=== PATIENT | male | born 1965 | race Caucasian/White ===

== ENCOUNTER → 2019-06-14 | Outpatient (CLI) | payer BC ==
[2019-06-14 17:37] LABS: HCT 43.3 % (39.0-53.0); HGB 14.2 gm/dL (13.0-17.5); MCH 28.6 pg (25.0-35.0); MCHC 32.9 g/dL (31.0-37.0); Mean Platelet Volume 7.1; Platelet Count 268 k/uL (150-450); RBC 4.97 m/uL (4.30-5.90); RDW 14.8 % (11.5-15.5); WBC 7.7 k/uL (3.8-10.6)
[2019-06-14 17:55] LABS: African American GFR (CKD) >90 (>60 ml/min/1.73 sqM); Anion Gap 8 mmol/L; Blood Urea Nitrogen 20 mg/dL (9-20); Carbon Dioxide 27 mmol/L (22-30); Chloride 105 mmol/L (98-107); Potassium 4.3 mmol/L (3.5-5.1); Sodium 140 mmol/L (137-145)
== END | disposition home or self-care (01) ==
LOC: LABPAT 16:59
PROVIDERS: ATTEND Internal Medicine Interventional Cardiology
DX: Z01.812 Encounter for preprocedural laboratory examination (principal); Q21.1 Atrial septal defect
CPT/HCPCS: 80051; 82565; 84520; 85027

== ENCOUNTER 2019-06-19 06:53 | Day surgery (SDC) | payer BC ==
[2019-06-19] MEDS: SODIUM CHLORIDE 0.9% 1,000 ML IV SCH (07:48)
[2019-06-19] MEDS ORDERED: ASPIRIN 325 MG TAB ONE (07:50)
[2019-06-19] MEDS ORDERED: ASPIRIN 325 MG TAB PO STA (07:53)
[2019-06-19] MEDS ORDERED: MIDAZOLAM (PF) 2 MG/2 ML VIAL IV ONE ×2 (10:00→10:09)
[2019-06-19] MEDS ORDERED: LIDOCAINE 1% INJ 10MG/ML (20 ML MDV) SQ ONE (10:05)
[2019-06-19] MEDS ORDERED: HYDROmorphone 1 MG/ML 1 ML SYRINGE IVP ONE (10:09)
[2019-06-19] MEDS ORDERED: HEPARIN SODIUM 1,000 UN/ML (10ML VL) IV ONE (10:09)
[2019-06-19] MEDS ORDERED: CLOPIDOGREL 75 MG TAB PO ONE (10:46)
[2019-06-19] MEDS ORDERED: SODIUM CHLORIDE 0.9% 1,000 ML IV SCH (11:00)
--- NOTE | 2019-06-19 11:26 | AN ---
ANGIOGRAPHY REPORT DATE OF SERVICE: 06/19/2019 PERFORMING PHYSICIAN: Lee Child MD, [employer]isher. PROCEDURE PERFORMED: 1. Intracardiac echocardiogram imaging. 2. Successful percutaneous patent foramen ovale closure using 25 mm PFO septal occluder with an excellent results and without any residual shunt. 3. Right atrial angiogram. INDICATION: This is a 54-year-old gentleman who recently diagnosed with an episode of CVA and underwent a transthoracic and transesophageal echocardiogram and that revealed PFO. He was brought today to undergo a PFO closure. APPROACH: Right common femoral vein. COMPLICATION: None. LEVEL OF SEDATION: Moderate with sedation length of 42 minutes. PROCEDURE DESCRIPTION: After obtaining an informed consent, the patient was brought to the cardiac cath lab manager. The right common femoral vein was cannulated x2, using ultrasound guidance, using micropuncture technique, and I placed two 8-Nepali sheaths. At that point, anticoagulation was initiated using heparin and the patient was given weight-based heparin and 10,000 units. Subsequently, I did advance the intracardiac echocardiogram probe through the venous sheath in the right groin under fluoroscopy guidance to the right atrium where I did intracardiac echocardiogram images. I did identify the patent foramen ovale as well as the septum. Subsequently, I did cross the PFO using 0.035 J-wire with the backup support of multipurpose catheter. The catheter was advanced all the way to the left upper pulmonary vein. After that, I did exchange my 0.035 J-wire into a Carol wire using the multipurpose catheter. Subsequently and after interrogating the patent hernandez ovale under intracardiac echocardiogram images, I did decide to go with 25 mm PFO septal occluder. The device was prepped under saline. I made sure there was no bubble left. The device was loaded in the extractor loader and unloader after that. Subsequently, I did exchange my short sheath into the long shuttle sheath using fluoro guidance. The sheath was advanced all the way to the left atrium, across the interatrial septum, over there Carol wire. After that, I pulled the dilator and the wire out. Subsequently, I loaded the PFO septal occluder in the sheath all the way. I did deploy the left atrial occluder, then the right atrial occluder. After that, I did interrogate the device again with [place] maneuvers and pulling and pushing on the device to make sure the device was stable enough. Subsequently, the device was released. I did right atrial angiogram. Subsequently, I did exchange my long sheath into short sheath. The procedure was completed without any complication. POSTPROCEDURE MANAGEMENT: 1. Dual anti-platelet therapy. 2. Risk factors modifications. 3. An echocardiogram. 4. Follow up with the patient. ART / WILFRED: [id number] /
[2019-06-19] MEDS ORDERED: ACETAMINOPHEN TAB 500 MG TAB PO ONE (12:27)
[2019-06-19] MEDS ORDERED: HYDROmorphone 1 MG/ML 1 ML SYRINGE IVP PRN (12:31)
[2019-06-19 15:11] VITALS: BMI 32.1
[2019-06-20] MEDS: SODIUM CHLORIDE 0.9% 1,000 ML IV SCH (07:24)
--- NOTE | 2019-06-20 08:35 | XR ---
EXAMINATION TYPE: XR chest 2V DATE OF EXAM: 06/20/2019 COMPARISON: NONE HISTORY: Atrial septal defect. Perforated foramen ovale. TECHNIQUE: Frontal and lateral views of the chest are obtained. FINDINGS: New radiopaque density overlying the right atrium and its medial aspect is presumed to rep resent exposure to arise from the known atrial septal defect. Multiple leads overlying the chest. No pneumothorax is seen. No focal consolidation or pleural effusion. Slight left hemidiaphragm elevation is chronic. Cardiomediastinal silhouette is stable and upper limits of normal in size. Minimal degen erative changes of the spine. IMPRESSION: New radiopaque density presumed to represent an atrial septal defect closure device give n the history.
[2019-06-20 08:56] VITALS: BP 122/79; PULSE 61; RESP 18; TEMP 98.4
[2019-06-20] MEDS ORDERED: CLOPIDOGREL 75 MG TAB PO SCH (09:00)
[2019-06-20] MEDS ORDERED: ASPIRIN 325 MG TAB PO SCH (09:00)
[2019-06-20 09:14] LABS: Basophils # (A) 0.1 k/uL (0-0.2); Basophils % (A) 1 %; Eosinophils # (A) 0.4 k/uL (0-0.7); Eosinophils % (A) 6 %; HCT 41.2 % (39.0-53.0); HGB 13.7 gm/dL (13.0-17.5); Lymphocytes # (A) 1.4 k/uL (1.0-4.8); Lymphocytes % (A) 24 %; MCH 29.1 pg (25.0-35.0); MCHC 33.2 g/dL (31.0-37.0); MCV 87.6 fL (80.0-100.0); Mean Platelet Volume 6.9; Monocytes # (A) 0.4 k/uL (0-1.0); Monocytes % (A) 6 %; Neutrophils # (A) 3.4 k/uL (1.3-7.7); Neutrophils % (A) 60 %; Platelet Count 204 k/uL (150-450); RDW 14.9 % (11.5-15.5); WBC 5.6 k/uL (3.8-10.6)
[2019-06-20 09:30] LABS: African American GFR (CKD) >90 (>60 ml/min/1.73 sqM); Anion Gap 9 mmol/L; Blood Urea Nitrogen 15 mg/dL (9-20); Calcium 9.8 mg/dL (8.4-10.2); Carbon Dioxide 28 mmol/L (22-30); Chloride 105 mmol/L (98-107); Glucose 101 mg/dL (74-99); Potassium 4.2 mmol/L (3.5-5.1); Sodium 142 mmol/L (137-145)
--- NOTE | 2019-06-20 11:10 | DS ---
DISCHARGE SUMMARY ADMISSION DATE: 06/19/2019. DISCHARGE DATE: 06/20/2019 BRIEF HISTORY: This is a 54-year-old gentleman who was admitted to the hospital yesterday and underwent successful percutaneous closure of patent foramen ovale using 25 mm PFO septal occluder with an excellent results and without any residual shunt from the right groin approach. On followup with the patient today, he is asymptomatic. The right groin is soft and nontender and without any bruises. The patient is going to be discharged home on dual anti-platelet therapy and I will follow up with the patient in a week in the office. MMODL / IJN: [id number] /
[2019-06-21] MEDS ORDERED: CLOPIDOGREL 75 MG TAB PO SCH (09:00)
--- NOTE | 2019-06-25 16:41 | ECHOF ---
Referral Reason:Post ASD/PFO Insertion MEASUREMENTS -------- HEIGHT: 180.3 cm WEIGHT: 106.6 kg BP: 123/72 RVIDd: 4.0 cm (< 3.3) IVSd: 1.4 cm (0.6 - 1.1) LVIDd: 4.5 cm (3.9 - 5.3) LVPWd: 1.3 cm (0.6 - 1.1) IVSs: 2.0 cm LVIDs: 2.7 cm LVPWs: 1.6 cm LAESV Index (A-L): 35.48 ml/m Ao Diam: 3.7 cm (2.0 - 3.7) AV Cusp: 2.3 cm (1.5 - 2.6) LA Diam: 5.2 cm (2.7 - 3.8) EPSS: 0.7 cm MV E Ramón: 0.93 m/s MV DecT: 185 ms MV A Ramón: 0.70 m/s MV E/A Ratio: 1.34 AR PHT: 630 ms RAP: 5.00 mmHg RVSP: 18.70 mmHg MV EF SLOPE: 87.80 mm/s (70 - 150) MV EXCURSION: 1.84 cm (> 18.000) FINDINGS -------- Resting bradycardia (HR<60bpm). The left ventricular size is normal. There is mild concentric left ventricular hypertrophy. There is normal global left ventricular contractility. Overall left ventricular systolic function is nor mal with, an EF between 55 - 60 %. The diastolic filling pattern is normal for the age of the patie nt. The right ventricle is moderately enlarged. Left atrium is moderately dilated by volume. The right atrium is mildly enlarged. There is an interatrial closure device in place without evidence of shunt. The aortic valve is trileaflet and appears structurally normal. Trace to mild aortic regurgitation. There is no evidence of aortic stenosis. The mitral valve is normal. Mild mitral regurgitation is present. Trace tricuspid regurgitation present. There is no evidence of pulmonary hypertension. The right ventricular systolic pressure, as measured by Doppler, is 18.70mmHg. Trace/mild (physiologic) pulmonic regurgitation. The aortic root size is normal. The inferior vena cava was not well visualized. There is no pericardial effusion. CONCLUSIONS -------- 1. Resting bradycardia (HR<60bpm). 2. The left ventricular size is normal. 3. There is mild concentric left ventricular hypertrophy. 4. There is normal global left ventricular contractility. 5. Overall left ventricular systolic function is normal with, an EF between 55 - 60 %. 6. The diastolic filling pattern is normal for the age of the patient. 7. The right ventricle is moderately enlarged. 8. Left atrium is moderately dilated by volume. 9. The right atrium is mildly enlarged. 10. There is an interatrial closure device in place without evidence of shunt. 11. The aortic valve is trileaflet and appears structurally normal. 12. Trace to mild aortic regurgitation. 13. There is no evidence of aortic stenosis. 14. The mitral valve is normal. 15. Mild mitral regurgitation is present. 16. Trace tricuspid regurgitation present. 17. There is no evidence of pulmonary hypertension. 18. The right ventricular systolic pressure, as measured by Doppler, is 18.70mmHg. 19. Trace/mild (physiologic) pulmonic regurgitation. 20. The aortic root size is normal. 21. The inferior vena cava was not well visualized. 22. There is no pericardial effusion. JUMPBASTING COLLAR BASTER: Tara Louie RDCS
== END 2019-06-20 11:55 | disposition home or self-care (01) ==
LOC: CATHCVL 06:53 → 3SCARD 10:43 → CATHCVL 06-20 11:55
PROVIDERS: ATTEND Internal Medicine Interventional Cardiology
DX: Q21.1 Atrial septal defect (principal); I63.9 Cerebral infarction, unspecified; Z79.82 Long term (current) use of aspirin
CPT/HCPCS: 93581; 93306; 86900; 86901; 80048; 85025; 86850; 71046; C1769 ×4; C1894; C1817; C1759; J0690; J2001; J1644; J1170; J2250; 93580; 93662